=== PATIENT | male | born 1950 | race American Indian/Alaskan Native ===

== ENCOUNTER 2020-10-07 07:17 | Emergency (ER) | payer SELFPAY ==
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
--- NOTE | 2020-10-07 08:46 | Ultrasound Report ---
ULTRASOUND ABDOMEN, LIMITED (RIGHT UPPER QUADRANT) INDICATION: H/O GALLSTONES. COMPARISON: None available. FINDINGS: Pancreas: Visualized portion shows no significant abnormality. Liver: Normal. Gallbladder: Gallstones are present. There is no gallbladder wall edema or pericholecystic fluid. Bile ducts: Normal. Common Bile Duct measures 3-4 mm. Free fluid: None. Additional Findings: None. IMPRESSION: 1. Cholelithiasis, no sonographic evidence of acute cholecystitis Signer Name: Delano Kamara MD Signed: 10/07/2020 8:42 AM Workstation Name: [id number]
--- NOTE | 2020-10-07 09:21 | Emergency Department Report ---
HPI - General Chief Complaint: Abdominal Pain Time Seen by Provider: 10/07/20 09:00 - HPI HPI: This is a 70-year-old -[place] male presents to the emergency department with complaint of right-sided abdominal pain that he feels in both the right lo wer, and right upper, quadrants of his abdomen. He also says that it radiates up into the chest. Overall this has been going on for more than a year but he gets "flareups", and his current pain started this morning. It is associated with some nausea without vomiting. He has not taken anything for symptoms prior to presentation. The patient says that the symptoms worsen when he eats or drinks anything. No known alleviating factors. He denies any fever, dysuria, diarrhea, lower extremity swelling, shortness of breath, back pain. He has a past medical history of hypertension and gallstones. He goes to [facility] for his primary care needs. No recent travel or sick contacts at home. ED Past Medical Hx - Past Medical History Previous Medical History?: Yes Hx Hypertension: Yes Hx Diabetes: Yes (borderline) Additional medical history: Gallstones - Surgical History Past Surgical History?: Yes Additional Surgical History: left leg below knee amputation - Social History Smoking Status: Never Smoker Substance Use Type: None - Medications Home Medications: Home Medications Medication Instructions Recorded Confirmed Last Taken Type traMADoL [Ultram 50 MG tab] 50 mg PO Q6HR PRN #10 tablet 10/07/20 Unknown Rx ED Review of Systems ROS: Stated complaint: CHEST PAIN Other details as noted in HPI Comment: All other systems reviewed and negative Constitutional: denies: chills, fever Eyes: denies: eye pain, vision change ENT: denies: ear pain, throat pain Respiratory: denies: cough, shortness of breath Cardiovascular: chest pain. denies: edema Gastrointestinal: abdominal pain, nausea. denies: vomiting Genitourinary: denies: dysuria, discharge Musculoskeletal: denies: back pain, arthralgia Skin: denies: rash, lesions Neurological: denies: headache, weakness Physical Exam - Physical Exam Vital Signs: Vital Signs 10/07/20 07:27 Temperature 98 F Pulse Rate 68 Respiratory 18 Rate Blood Pressure 144/83 O2 Sat by Pulse 100 Oximetry Physical Exam: GENERAL: The patient is well-developed well-nourished. HENT: Normocephalic. Atraumatic. Patient has moist mucous membranes. EYES: Extraocular motions are intact. NECK: Supple. Trachea is midline. CHEST/LUNGS: Clear to auscultation. There is no respiratory distress noted. HEART/CARDIOVASCULAR: Regular. There is no tachycardia. ABDOMEN: Abdomen is soft. There is mild right upper quadrant and right lower quadrant abdominal tenderness to palpation. No guarding. Patient has normal bowel sounds. There is no abdominal distention. SKIN: Skin is warm and dry. NEURO: The patient is awake, alert, and oriented. The patient is cooperative. The patient has no focal neurologic deficits. Normal speech. MUSCULOSKELETAL: There is no tenderness or deformity. There is no limitation range of motion. ED Course Vital Signs 10/07/20 07:27 Temperature 98 F Pulse Rate 68 Respiratory 18 Rate Blood Pressure 144/83 O2 Sat by Pulse 100 Oximetry ED Medical Decision Making - Lab Data Result diagrams: 10/07/20 09:22 10/07/20 09:22 Lab Results 10/07/20 10/07/20 10/07/20 Range/Units 09:22 09:22 09:22 WBC 3.6 L (4.5-11.0) K/mm3 RBC 4.38 (3.65-5.03) M/mm3 Hgb 13.4 (11.8-15.2) gm/dl Hct 39.8 (35.5-45.6) % MCV 91 (84-94) fl MCH 31 (28-32) pg MCHC 34 (32-34) % RDW 14.5 (13.2-15.2) % Plt Count 246 (140-440) K/mm3 PT 12.8 (12.2-14.9) Sec. INR 0.98 (0.87-1.13) Sodium 142 (137-145) mmol/L Potassium 4.3 (3.6-5.0) mmol/L Chloride 104.9 (98-107) mmol/L Carbon Dioxide 29 (22-30) mmol/L Anion Gap 12 mmol/L BUN 8 L (9-20) mg/dL Creatinine 0.9 (0.8-1.3) mg/dL Estimated GFR > 60 ml/min BUN/Creatinine Ratio 9 % Glucose 106 H (75-100) mg/dL Calcium 9.9 (8.4-10.2) mg/dL Total Bilirubin 0.40 (0.1-1.2) mg/dL AST 15 (5-40) units/L ALT 14 (7-56) units/L Alkaline Phosphatase 77 (35-129) units/L Troponin T < 0.010 (0.00-0.029) ng/mL Total Protein 7.0 (6.3-8.2) g/dL Albumin 4.3 (3.9-5) g/dL Albumin/Globulin Ratio 1.6 % Lipase 27 (13-60) units/L Urine Color (Yellow) Urine Turbidity (Clear) Urine pH (5.0-7.0) Ur Specific [place] (1.003-1.030) Urine Protein (Negative) mg/dL Urine Glucose (UA) (Negative) mg/dL Urine Ketones (Negative) mg/dL Urine Blood (Negative) Urine Nitrite (Negative) Urine Bilirubin (Negative) Urine Urobilinogen (<2.0) mg/dL Ur Leukocyte Esterase (Negative) Urine WBC (Auto) (0.0-6.0) /HPF Urine RBC (Auto) (0.0-6.0) /HPF 10/07/20 Range/Units 10:46 WBC (4.5-11.0) K/mm3 RBC (3.65-5.03) M/mm3 Hgb (11.8-15.2) gm/dl Hct (35.5-45.6) % MCV (84-94) fl MCH (28-32) pg MCHC (32-34) % RDW (13.2-15.2) % Plt Count (140-440) K/mm3 PT (12.2-14.9) Sec. INR (0.87-1.13) Sodium (137-145) mmol/L Potassium (3.6-5.0) mmol/L Chloride (98-107) mmol/L Carbon Dioxide (22-30) mmol/L Anion Gap mmol/L BUN (9-20) mg/dL Creatinine (0.8-1.3) mg/dL Estimated GFR ml/min BUN/Creatinine Ratio % Glucose (75-100) mg/dL Calcium (8.4-10.2) mg/dL Total Bilirubin (0.1-1.2) mg/dL AST (5-40) units/L ALT (7-56) units/L Alkaline Phosphatase (35-129) units/L Troponin T (0.00-0.029) ng/mL Total Protein (6.3-8.2) g/dL Albumin (3.9-5) g/dL Albumin/Globulin Ratio % Lipase (13-60) units/L Urine Color Straw (Yellow) Urine Turbidity Clear (Clear) Urine pH 7.0 (5.0-7.0) Ur Specific [place] 1.006 (1.003-1.030) Urine Protein <15 mg/dl (Negative) mg/dL Urine Glucose (UA) Neg (Negative) mg/dL Urine Ketones Neg (Negative) mg/dL Urine Blood Neg (Negative) Urine Nitrite Neg (Negative) Urine Bilirubin Neg (Negative) Urine Urobilinogen < 2.0 (<2.0) mg/dL Ur Leukocyte Esterase Neg (Negative) Urine WBC (Auto) 1.0 (0.0-6.0) /HPF Urine RBC (Auto) 1.0 (0.0-6.0) /HPF - EKG Data -: EKG Interpreted by Me EKG shows normal: sinus rhythm, axis, intervals, QRS complexes, ST-T waves Rate: normal - EKG Data When compared to previous EKG there are: previous EKG unavailable Interpretation: normal EKG - Radiology Data Radiology results: report reviewed, image reviewed interpreted by me: Chest x-ray does not show any acute process. There are no pleural effusions, obvious pneumonia and there is no pneumothorax. No significant cardiomegaly. Abdominal x-ray shows nonspecific nonobstructive bowel gas. ULTRASOUND ABDOMEN, LIMITED (RIGHT UPPER QUADRANT) INDICATION: H/O GALLSTONES. COMPARISON: None available. FINDINGS: Pancreas: Visualized portion shows no significant abnormality. Liver: Normal. Gallbladder: Gallstones are present. There is no gallbladder wall edema or pericholecystic fluid. Bile ducts: Normal. Common Bile Duct measures 3-4 mm. Free fluid: None. Additional Findings: None. IMPRESSION: 1. Cholelithiasis, no sonographic evidence of acute cholecystitis CT ABDOMEN AND PELVIS WITH IV CONTRAST INDICATION: Right-sided abdominal pain. COMPARISON: Ultrasound earlier today. TECHNIQUE: All CT scans at this facility use dose modulation, automated exposure control, iterative reconstruction or weight based dosing, when appropriate, to reduce radiation dose to as low as keila sonably achievable. FINDINGS: Lung Bases: No significant abnormality. Skeletal System: No acute abnormality. ABDOMEN: Liver: No significant abnormality. Gallbladder: Cholelithiasis. Bile Ducts: No significant abnormality. Pancreas: No significant abnormality. Spleen: No significant abnormality. Adrenals: No significant abnormality. Right Kidney: No significant abnormality. Left Kidney: No significant abnormality. Upper GI tract: No significant abnormality. Lymph Nodes: No significant adenopathy. Aorta: No significant abnormality. Additional Findings: No significant abnormality. PELVIS: Colon: No acute abnormality. Partial right colectomy. Anastomosis appears unremarkable. Urinary Bladder and Distal Ureters: No significant abnormality. Appendix: No significant abnormality. Lymph Nodes: No significant adenopathy. Additional Findings: None. IMPRESSION: 1. No acute process in the abdomen or pelvis. 2. Minimal cholelithiasis. - Medical Decision Making This patient presents to the emergency department with complaint of some right- sided abdominal pain that sometimes radiates into the chest. Overall the patient says that this has been going on for about a year but he had a flareup that started this morning. On examination there is reproducible abdominal tenderness to the right upper and right lower quadrants of the abdomen, but the abdomen is soft, nondistended and nontoxic in appearance. An EKG was done that does not show any morphology consistent with ST elevation myocardial infarction. Chest and abdominal x-rays were completed that did not show any acute processes. Patient had a right upper quadrant ultrasound done through triage th at came back showing cholelithiasis without cholecystitis. Since the patient did have right lower quadrant abdominal tenderness to palpation as well, I ordered a CT scan of the abdomen and pelvis with IV contrast. No signs of any appendicitis, aortic or intestinal abnormalities, and essentially was a normal CT examination. Patient's labs have been unremarkable including CBC, metabolic panel, urinalysis, and a negative troponin. Vital signs have been reassuring throughout his ED course including being afebrile. From these reasons, the patient appears safe for discharge home at this time. He has been instructed to follow-up with primary care in the next few days. His contact information has been sent over to the [facility], and someone from their office should be contacting him shortly for close outpatient follow-up as part of our hospitals low risk chest pain protocol. We also discussed the need to follow-up, non-emergently, with general surgery due to recurrent cholelithiasis to evaluate his need and desire for elective cholecystectomy. Patient will retu rn to the emergency department with any worsening of his symptoms or with any acute distress. Critical Care Time: No Critical care attestation.: If time is entered above; I have spent that time in minutes in the direct care of this critically ill patient, excluding procedure time. ED Disposition Clinical Impression: Atypical chest pain Abdominal pain Qualifiers: Abdominal location: unspecified location Qualified Code(s): R10.9 - Unspecified abdominal pain Cholelithiasis Qualifiers: Cholelithiasis location: gallbladder Cholecystitis presence: without cholecystitis Biliary obstruction: without biliary obstruction Qualified Code(s): K80.20 - Calculus of gallbladder without cholecystitis without o bstruction Disposition: TO HOME OR SELFCARE Is pt being admited?: No Condition: Stable Instructions: Cholelithiasis, Abdominal Pain, Adult, Nonspecific Chest Pain, Adult, Chest Pain (ED) Additional Instructions: Please follow-up with your primary care physician in the next few days. I am sending your contact information over to the [facility], and someone from their office should be contacting you shortly for close outpatient follow-up. Just in case, I am giving you a referral for one of their cardiologists, Dr. Callahan. You have been prescribed a medication that is sedating and therefore should not be taken prior to driving, working, and responsible for children and in no way should be mixed with alcohol of any quantity. Return to the emergency department with any worsening of your symptoms, new or concerning symptoms not addressed during this current emergency department visit, or with any acute distress. Prescriptions: traMADoL [Ultram 50 MG tab] 50 mg PO Q6HR PRN #10 tablet PRN Reason: Pain Referrals: PRIMARY CARE, [Primary Care Provider] - 3-5 Days CARLOS CALLAHAN MD [Staff Physician] - 3-5 Days Time of Disposition: 12:24
--- NOTE | 2020-10-07 09:33 | Event Note ---
ED Screening Note Date of service: 10/07/20 Time: 07:36 ED Screening Note: This initial assessment/diagnostic orders/clinical plan/treatment(s) is/are subject to change based on patients health status, clinical progression and re- assessment by fellow clinical providers in the ED. Further treatment and workup at subsequent clinical providers discretion. Patient/guardian urged not to elope from the ED as their condition may be serious if not clinically assessed and managed. Initial orders include: 70-year-old male complaining of right flank abdominal pain radiating to the center of his abdomen causing chest pain. He denies cough fever no URI symptoms. He reports nausea no vomiting. Patient reports a history of gallstones which is aggravated by certain foods. He is in no acute distress respirations easy and unlabored skin warm dry and intact
[2020-10-07 09:58] LABS: Hematocrit 39.8 % (35.5-45.6); Hemoglobin 13.4 gm/dl (11.8-15.2); Mean Corpuscular HGB Conc 34 % (32-34); Mean Corpuscular Volume 91 fl (84-94); Platelet Count 246 K/mm3 (140-440); Red Blood Count 4.38 M/mm3 (3.65-5.03); Red Cell Distribution Width 14.5 % (13.2-15.2)
[2020-10-07 10:13] LABS: Alanine Aminotransferase 14 units/L (7-56); Albumin 4.3 g/dL (3.9-5); BUN/Creatinine Ratio 9; Blood Urea Nitrogen 8 mg/dL (9-20); Calcium 9.9 mg/dL (8.4-10.2); Hemolysis Index 12
[2020-10-07 10:53] LABS: INR 0.98 (0.87-1.13)
[2020-10-07 11:11] LABS: Bilirubin,Urine NEG (Negative); Blood,Urine NEG (Negative); Color,Urine Straw (Yellow); Protein,Urine <15 mg/dL mg/dL (Negative); Urobilinogen,Urine < 2.0 mg/dL (<2.0)
--- NOTE | 2020-10-07 12:12 | Cat Scan Report ---
CT ABDOMEN AND PELVIS WITH IV CONTRAST INDICATION: Right-sided abdominal pain. COMPARISON: Ultrasound earlier today. TECHNIQUE: All CT scans at this facility use dose modulation, automated exposure control, iterative reconstructi on or weight based dosing, when appropriate, to reduce radiation dose to as low as reasonably achieva ble. FINDINGS: Lung Bases: No significant abnormality. Skeletal System: No acute abnormality. ABDOMEN: Liver: No significant abnormality. Gallbladder: Cholelithiasis. Bile Ducts: No significant abnormality. Pancreas: No significant abnormality. Spleen: No significant abnormality. Adrenals: No significant abnormality. Right Kidney: No significant abnormality. Left Kidney: No significant abnormality. Upper GI tract: No significant abnormality. Lymph Nodes: No significant adenopathy. Aorta: No significant abnormality. Additional Findings: No significant abnormality. PELVIS: Colon: No acute abnormality. Partial right colectomy. Anastomosis appears unremarkable. Urinary Bladder and Distal Ureters: No significant abnormality. Appendix: No significant abnormality. Lymph Nodes: No significant adenopathy. Additional Findings: None. IMPRESSION: 1. No acute process in the abdomen or pelvis. 2. Minimal cholelithiasis. Signer Name: Delano Kamara MD Signed: 10/07/2020 12:08 PM Workstation Name: [id number]
[2020-10-07 12:53] VITALS: BP 123/44
== END 2020-10-07 12:53 | disposition home or self-care (01) ==
LOC: ED 07:17
DX: K80.20 Calculus of gallbladder without cholecystitis without obstruction (principal); R07.9 Chest pain, unspecified; R10.9 Unspecified abdominal pain; I10 Essential (primary) hypertension; E11.9 Type 2 diabetes mellitus without complications; Z79.899 Other long term (current) drug therapy; Z98.890 Other specified postprocedural states
CPT/HCPCS: 36415; 74022; 74177; 76705; 80053; 81001; 83690; 84484; 85027; 85610; 99284; Q9967; 93005